=== PATIENT | male | born 1975 | race Two or more races ===

== ENCOUNTER 2016-11-15 06:10 | Day surgery (SDC) | payer BC ==
[2016-11-14 10:59] VITALS: BMI 22.6
[~2016-11-15] VITALS: Ht 160 cm; Wt 60.0 kg
[2016-11-15] VITALS (8 sets, daily range): BP systolic 117–139; BP diastolic 64–77; PULSE 67–79; RESP 12–18; Ht 160 cm; Wt 60.0 kg
--- NOTE | 2016-11-15 06:58 | HPN ---
Date/Time of Note Date/Time of Note DATE: 11/15/16 TIME: 06:58 Interval H&P Admission Note Pt. seen H&P reviewed: No system changes BENJAMIN CYR MD Nov 15, 2016 06:58
[2016-11-15] MEDS ORDERED: ROCURONIUM 50 MG INJ ONE (07:00)
[2016-11-15] MEDS ORDERED: BUPIVACAINE 0.25%/EPI (SDV) 30 ML INJ ONE (07:07)
[2016-11-15] MEDS ORDERED: FENTAnyl 50 MCG/ML VIAL ONE (07:23)
[2016-11-15] MEDS ORDERED: MIDAZOLAM 1 MG/ML 2 ML INJ ONE (07:23)
[2016-11-15] MEDS ORDERED: FENTAnyl 50 MCG/ML VIAL IV PRN (08:00)
[2016-11-15] MEDS ORDERED: HYDROmorphONE (0.2 MG/ML) 10ML SYG IV PRN ×2 (08:00)
[2016-11-15] MEDS ORDERED: MEPERIDINE 25 MG INJ IV PRN (08:00)
[2016-11-15] MEDS ORDERED: ONDANSETRON 4 MG INJ IV PRN ×2 (08:00→08:30)
[2016-11-15] MEDS ORDERED: DIPHENHYDRAMINE 50 MG INJ IV PRN (08:00)
[2016-11-15] MEDS ORDERED: LIDOCAINE 2% (SDV) 5 ML INJ ONE (08:09)
[2016-11-15] MEDS ORDERED: PROPOFOL 20 ML ONE (08:09)
[2016-11-15] MEDS ORDERED: GLYCOPYRROLATE 1 MG INJ ONE (08:10)
[2016-11-15] MEDS ORDERED: ONDANSETRON 4 MG INJ ONE (08:10)
[2016-11-15] MEDS ORDERED: NEOSTIGMINE 3 MG/3 ML SYRINGE ONE (08:10)
[2016-11-15] MEDS ORDERED: CEFAZOLIN 1 GM INJ ONE (08:10)
[2016-11-15] MEDS ORDERED: OXYCODONE/ACETAMINOPHEN (5/325) TAB PO PRN ×2 (08:30)
[2016-11-15] MEDS ORDERED: morphine 2 MG INJ IV PRN (08:30)
--- NOTE | 2016-11-15 08:30 | OPR ---
DATE OF OPERATION: 11/15/2016 PREOPERATIVE DIAGNOSIS: Right inguinal hernia without obstruction. OPERATIONS PERFORMED: 1. Repair with extra-large plug. 2. Right inguinal nerve block. POSTOPERATIVE DIAGNOSIS: Right inguinal hernia without obstruction (direct). SURGEON: Benjamin Moran MD ANESTHESIA: General. ANESTHESIOLOGIST: Dr. Sims DESCRIPTION OF PROCEDURE: After satisfactory general anesthesia was achieved, the abdomen was prepp ed and draped in the usual fashion. A 3 cm transverse suprapubic right groin incision was made and carried down to the level of the external oblique aponeurosis which was opened in the direction of i ts fibers. The cord and nerve were retracted and preserved. There was a large direct inguinal nacho ia. There was no indirect hernia. The direct sac was dissected circumferentially and reduced. The reduction was maintained by placement of an extra-large plug secured circumferentially with interru pted 3-0 Vicryl suture to healthy fascia. Next, the flat portion of the mesh was cut and fashioned to fit in the floor of the canal as an overlay. It was anchored at the pubic tubercle with 2-0 Nova magui, laterally to inguinal ligament with 2-0 Novafil, and medially to conjoined tendon with interrup lan 2-0 Novafil. The mesh distal to the cord was reconstituted with a single suture of 2-0 Novafil creating a new internal ring of appropriate size. The cord and nerve were then replaced beneath the external oblique, which was closed with a running 3-0 Vicryl. Next, a right inguinal nerve block w as performed, 10 mL of 0.25% Marcaine plain were injected into the fascia 1 cm medial and inferior t o the right anterior iliac spine. Ten more mL of local anesthetic were injected directly into the w ound. Falguni's fascia was closed with interrupted 3-0 Vicryl and skin closed with running 4-0 subcu ticular Vicryl. Operative blood loss approximately 5 mL. Sponge and needle counts were reported as correct x2. The patient tolerated the procedure well and without incident or complication. Dictated By: BENJAMIN DIOP/NTS Conf#: [id number] DID#: [id number] CC: Doe Ortiz;*EndCC*
== END 2016-11-15 09:50 | disposition home or self-care (01) ==
LOC: SDS 06:10
PROVIDERS: ATTEND Surgery
DX: K40.90 Unilateral inguinal hernia, without obstruction or gangrene, not specified as recurrent (principal)
CPT/HCPCS: 49505; C1781; J0690; J2175; J2250; J2405; J2710; J3010; Z7512; Z7610